=== PATIENT | male | born 1990 | race Caucasian/White ===

== ENCOUNTER 2018-07-31 21:27 | Emergency (ER) | payer BC ==
[2018-07-31] MEDS ORDERED: predniSONE 20 MG TAB PO ONE (21:48)
--- NOTE | 2018-07-31 22:05 | EDPHY ---
H & P Stated Complaint: ATE SOME NUTS AT 2044, FEELING HOT AND SOB, BENADRYL 50 MG Time Seen by Provider: 07/31/18 21:36 HPI/ROS: CHIEF COMPLAINT: Mouth itching HISTORY OF PRESENT ILLNESS: 28-year-old male presents with mouth itching after eating bread. He has a known nut allergy. 2 hr ago, he was eating bread and developed itchiness in his mouth, associated with a swelling sensation in his throat. He took Benadryl prior to arrival. He had an EpiPen with him, but did not use it. He is now feeling better and the symptoms have almost completely resolved. He has had multiple symptoms, possibly related to allergic reactions in the past few weeks, since moving to [place]. Has not seen an life insurance underwriter recently. REVIEW OF SYSTEMS: complete 10 point ROS reviewed and is negative except for the noted elements in the HPI - Personal History Current Tetanus/Diphtheria Vaccine: Yes Current Tetanus Diphtheria and Acellular Pertussis (TDAP): Yes - Medical/Surgical History Hx Asthma: No Hx Chronic Respiratory Disease: No Hx Diabetes: No Hx Cardiac Disease: No Hx Renal Disease: No Hx Cirrhosis: No Hx Alcoholism: No Hx HIV/AIDS: No Hx Splenectomy or Spleen Trauma: No Other PMH: SHOULDER SURGERY - Social History Smoking Status: Never smoked - Physical Exam Exam: General Appearance: Alert, no distress Eyes: Pupils equal and round, no periorbital swelling ENT, Mouth: Mucous membranes moist, no oral swelling Neck: Normal inspection, no stridor Respiratory: Lungs are clear to auscultation, no wheezing Cardiovascular: Regular rate and rhythm Neurological: A&O, nonfocal, normal gait Skin: No hives Extremities: No swelling Psychiatric: Mood and affect normal Constitutional: Initial Vital Signs Temperature (C) 36.7 C 07/31/18 21:29 Heart Rate 94 07/31/18 21:29 Respiratory Rate 20 07/31/18 21:29 Blood Pressure 158/97 H 07/31/18 21:29 O2 Sat (%) 94 07/31/18 21:29 O2 Delivery Mode Room Air Allergies/Adverse Reactions: nut - unspecified Allergy (Verified 07/31/18 21:32) Home Medications: Medication Instructions Recorded predniSONE 60 mg PO DAILY #9 tab 07/31/18 Medical Decision Making ED Course/Re-evaluation: This pt presents with an allergic rxn, now resolving. Prednisone 60 mg orally given. d/w pt need to f/u with life insurance underwriter, ?new allergies. EpiPen instructions given, including reasons to use epipen. Differential Diagnosis: Differential diagnosis includes though it is not limited to laryngeal edema, bronchospasm, hypotension, angioedema. - Data Points Medications Given: Discontinued Medications Prednisone (Prednisone) 60 mg PO EDNOW ONE Stop: 07/31/18 21:49 Last Admin: 07/31/18 22:11 Dose: 60 mg Departure - Departure Disposition: Home, Routine, Self-Care Clinical Impression: Allergic reaction Qualifiers: Encounter type: initial encounter Qualified Code(s): T78.40XA - Allergy, unspecified, initial encounter Condition: Good Instructions: General Allergic Reaction (ED) Additional Instructions: Take Claritin in the morning and Benadryl at night. Take prednisone as prescribed. Return for worsening symptoms or any concerns. Followup with an life insurance underwriter. Referrals: NONE *PRIMARY CARE P,. [Primary Care Provider] - As per Instructions Prescriptions: predniSONE 60 mg PO DAILY #9 tab
[2018-07-31 22:36] VITALS: BP 145/94
== END 2018-07-31 22:32 | disposition home or self-care (01) ==
DX: T78.40XA Allergy, unspecified, initial encounter (principal)
CPT/HCPCS: J7512